=== PATIENT | male | born 1950 | race Caucasian/White ===

== ENCOUNTER 2023-03-02 16:38 | Observation (INO) | payer MEDICARE, OTHER ==
[2023-03-02 17:07] LABS: BASOPHILS PERCENT AUTO 0.1 % (0.2-1.2); EOSINOPHILS PERCENT AUTO 0.2 % (0.0-4.0); HEMATOCRIT 54.6 % (40.0-52.0); HEMOGLOBIN 18.5 g/dL (14.0-18.0); IMMATURE GRAN ABSOLUTE AUTO 0.03 x10^3/uL (0.00-0.07); LYMPHOCYTES ABSOLUTE AUTO 0.3 x10^3/uL (1.0-4.8); LYMPHOCYTES PERCENT AUTO 2.5 % (25.0-50.0); MEAN CORPUSCULAR HEMOGLOBIN 30.9 pg (26.0-32.0); MEAN CORPUSCULAR HGB CONC 33.9 g/dL (32.0-36.0); MEAN CORPUSCULAR VOLUME 91.3 fL (78.0-93.0); MONOCYTES ABSOLUTE AUTO 0.3 x10^3/uL (0.0-0.8); MONOCYTES PERCENT AUTO 2.7 % (2.0-11.0); NEUTROPHILS ABSOLUTE AUTO 11.8 x10^3/uL (1.8-7.7); NEUTROPHILS PERCENT AUTO 94.3 % (50.0-80.0); RED BLOOD CELL COUNT 5.98 x10^6/uL (4.5-6.0); WHITE BLOOD CELL COUNT,WBC 12.5 x10^3/uL (4.0-10.0)
[2023-03-02] MEDS: Sodium Chloride 0.9% 1,000 ML IV ONE ×3 (17:10→20:00)
[2023-03-02] MEDS: Ondansetron 4 MG/2 ML SDV IVPUSH ONE (17:10)
[2023-03-02 17:16] LABS: PLATELET COUNT,PLT 250 x10^3/uL (130-400)
[2023-03-02 17:27] LABS: A/G RATIO 1.21; ALBUMIN 4.7 g/dL (3.4-5.0); C-REACTIVE PROTEIN 0.3 mg/dL (<=0.9); CALCIUM 10.3 mg/dL (8.5-10.1); EST CRCL DRUG DOSING (CG) 30.88 mL/min; POTASSIUM,K 4.8 mmol/L (3.5-5.1); PROTEIN TOTAL,TP 8.6 g/dL (6.4-8.2)
[2023-03-02 17:53] LABS: ANION GAP 14.8 mmol/L (5-15)
[2023-03-02 19:33] LABS: CORONAVIRUS COVID-19 NAA NEGATIVE (NEGATIVE); INFLUENZA A NAA NEGATIVE (NEGATIVE); INFLUENZA B NAA NEGATIVE (NEGATIVE); RESPIRATORY SYNCYTIAL VIR NAA NEGATIVE (NEGATIVE)
[2023-03-02 19:50] LABS: BILIRUBIN,URINE SMALL (NEGATIVE); COLOR,URINE DARK YELLOW (YELLOW); GLUCOSE,URINE NEGATIVE (NEGATIVE); KETONES,URINE NEGATIVE (NEGATIVE); LEUKOCYTE ESTERASE,URINE NEGATIVE (NEGATIVE); NITRITE,URINE NEGATIVE (NEGATIVE); OCCULT BLOOD,URINE NEGATIVE (NEGATIVE); PH,URINE 5.5 (5.0-8.0); PROTEIN,URINE 30 mg/dL (NEGATIVE); UROBILINOGEN,URINE 0.2 EU/dL (0.2)
[2023-03-02 20:01] LABS: APPEARANCE,URINE SLIGHTLY CLOUDY (CLEAR); RBC,URINE 0-5 /HPF (NOT SEEN); WBC,URINE 0-5 /HPF (NOT SEEN)
[2023-03-02 20:02] LABS: BACTERIA,URINE RARE /HPF (NOT SEEN); HYALINE CASTS,URINE FEW; MUCUS,URINE FEW /LPF (NOT SEEN)
[2023-03-02] MEDS: cefTRIAXone 1 GM Vial IVPUSH ONE (20:05)
[2023-03-02] MEDS: Acetaminophen 325 MG Tab PO ONE (20:05)
[2023-03-02] MEDS ORDERED: Sodium Chloride 0.9% 10 ML Syringe FLUSH PRN (21:41)
[2023-03-02] MEDS ORDERED: Ondansetron 4 MG Tab.DIS PO PRN (21:41)
[2023-03-02] MEDS ORDERED: Ondansetron 4 MG/2 ML SDV IV PRN (21:41)
[2023-03-02] MEDS ORDERED: Acetaminophen 325 MG Tab PO PRN (21:41)
[2023-03-03 07:20] LABS: BASOPHILS PERCENT AUTO 0.1 % (0.2-1.2); EOSINOPHILS PERCENT AUTO 0.6 % (0.0-4.0); HEMATOCRIT 45.1 % (40.0-52.0); HEMOGLOBIN 15.1 g/dL (14.0-18.0); IMMATURE GRAN ABSOLUTE AUTO 0.02 x10^3/uL (0.00-0.07); LYMPHOCYTES ABSOLUTE AUTO 0.4 x10^3/uL (1.0-4.8); MEAN CORPUSCULAR HEMOGLOBIN 31.1 pg (26.0-32.0); MEAN CORPUSCULAR HGB CONC 33.5 g/dL (32.0-36.0); MONOCYTES ABSOLUTE AUTO 0.4 x10^3/uL (0.0-0.8); MONOCYTES PERCENT AUTO 5.3 % (2.0-11.0); NEUTROPHILS ABSOLUTE AUTO 6.2 x10^3/uL (1.8-7.7); NEUTROPHILS PERCENT AUTO 88.3 % (50.0-80.0); PLATELET COUNT,PLT 218 x10^3/uL (130-400); RED BLOOD CELL COUNT 4.85 x10^6/uL (4.5-6.0)
[2023-03-03 07:22] LABS: LYMPHOCYTES PERCENT AUTO 5.4 % (25.0-50.0)
[2023-03-03 07:44] LABS: A/G RATIO 1.07; ALBUMIN 3.1 g/dL (3.4-5.0); BILIRUBIN TOTAL 1.4 mg/dL (0.2-1.0); C-REACTIVE PROTEIN 3.3 mg/dL (<=0.9); CALCIUM 8.2 mg/dL (8.5-10.1); CREATININE 1.5 mg/dL (0.70-1.30); EST CRCL DRUG DOSING (CG) 41.17 mL/min; POTASSIUM,K 4.3 mmol/L (3.5-5.1)
[2023-03-03 07:47] LABS: ANION GAP 14.3 mmol/L (5-15)
[2023-03-03] MEDS ORDERED: Loperamide 2 MG Cap PO PRN (09:07)
[2023-03-03] MEDS: Levothyroxine 88 MCG Tab PO SCH (09:10)
[2023-03-03] MEDS: Hydrochlorothiazide 25 MG Tab PO SCH (09:10)
[2023-03-03 14:24] VITALS: BP 130/69; PULSE 72
== END 2023-03-03 15:00 | disposition home or self-care (01) ==
LOC: VM.ED 16:38 → VM.MS 20:13
PROVIDERS: ADMIT Physician Assistant Medical; ATTEND Physician Assistant Medical
DX: K52.9 Noninfective gastroenteritis and colitis, unspecified (principal); E86.0 Dehydration; N17.9 Acute kidney failure, unspecified; E78.00 Pure hypercholesterolemia, unspecified; I10 Essential (primary) hypertension; E05.90 Thyrotoxicosis, unspecified without thyrotoxic crisis or storm; Z90.49 Acquired absence of other specified parts of digestive tract; Z88.5 Allergy status to narcotic agent; Z79.890 Hormone replacement therapy; Z79.899 Other long term (current) drug therapy; Z20.822 Contact with and (suspected) exposure to COVID-19
CPT/HCPCS: 0241U; 36415; 74176; 80053; 81001; 83605; 83690; 83735; 84145; 85025; 86140; 87040; 87045; 87046; 87328; 87329; 87493; 96361; 96374; 96375; 99285-25; A9270-GY; G0378; J0696; J2405; J7030